=== PATIENT | male | born 1990 | race Caucasian/White ===

== ENCOUNTER 2017-03-27 17:22 | Emergency (ER) | payer OTHER ==
[2017-03-27] MEDS ORDERED: Sodium Chloride 0.9% 1,000 ML IV SCH (18:00)
[2017-03-27] MEDS ORDERED: Ketorolac 30 MG/ML SDV IVPUSH ONE (18:02)
[2017-03-27] MEDS ORDERED: Ondansetron 4 MG/2 ML SDV IVPUSH ONE (18:02)
--- NOTE | 2017-03-27 18:04 | EDM.PDOC ---
ED HPI GENERAL MEDICAL PROBLEM - General Chief Complaint: Abdominal Pain Stated Complaint: STOMACH PAIN Time Seen by Provider: 03/27/17 17:49 Source of Information: Reports: Patient, RN Notes Reviewed History Limitations: Reports: No Limitations - History of Present Illness INITIAL COMMENTS - FREE TEXT/NARRATIVE: 26-year-old gentleman presents emergency department today complaint of abdominal pain, he was initially evaluated in the clinic sent to the emergency department for further evaluation he states his abdominal pain started today and has progressively gotten worse probably in the left lower quadrant prior to this he did have some sinus issues mainly upper respiratory a symptomology that has improved somewhat he complains of a headache and nausea Headache Pain Score (Numeric/FACES): 9 - Related Data Allergies Allergy/AdvReac Type Severity Reaction Status Date / Time No Known Allergies Allergy Verified 03/27/17 17:44 Home Meds: Home Meds NK [No Known Home Meds] 07/10/16 [History] Past Medical History Musculoskeletal History: Reports: Fracture Psychiatric History: Reports: ADHD Social & Family History - Tobacco Use Smoking Status *Q: Unknown Ever Smoked Years of Tobacco use: 8 Packs/Tins Daily: 1 - Recreational Drug Use Recreational Drug Use: No ED ROS GENERAL - Review of Systems Review Of Systems: See Below Constitutional: Reports: Fever, Chills HEENT: Reports: No Symptoms Respiratory: Reports: No Symptoms Cardiovascular: Reports: No Symptoms GI/Abdominal: Reports: Abdominal Pain, Nausea. Denies: Flatus, Vomiting : Reports: No Symptoms Musculoskeletal: Reports: No Symptoms Skin: Reports: No Symptoms Neurological: Reports: No Symptoms Psychiatric: Reports: No Symptoms ED EXAM, GI/ABD - Physical Exam Exam: See Below Text/Narrative:: General: Male, not in any distress, alert and oriented x3 HEENT: head is atraumatic normocephalic, eyes pupils equal round reactive to light, sclera clear no conjunctivitis appreciated. Ears tympanic membranes clear and khan landmarks and light reflex are present bilaterally canals are clear. Nose no septal deviation, nares are clear, no blood present. Mouth mucosa is moist and pink no erythema or exudate noted in soft palate, tongue is midline uvula is midline, dentition is intact. Neck: Supple no thyromegaly no tracheal deviation. Nodes: Cervical nodes subclavicular nodes nontender no palpable lymphadenopathy noted. Lungs: clear to auscultation bilaterally with symmetrical respirations, no adventitious noise appreciated. CV: Regular rate and rhythm S1 and S2 appreciated no murmurs rubs or gallops noted. Abdomen: Soft, tender left lower quadrant, no palpable masses or organomegaly appreciated, no distention positive for guarding bowel sounds are present, . Neuro: Cranial nerves II through XII grossly intact Skin: Warm and dry, intact Extremities: No lower extremity edema appreciated, pedal pulse is +2. Course - Vital Signs Last Recorded V/S: Last Vital Signs Temp 101.7 F H 03/27/17 18:30 Pulse 91 03/27/17 21:32 Resp 18 03/27/17 21:32 BP 137/76 03/27/17 21:32 Pulse Ox 96 03/27/17 21:32 - Orders/Labs/Meds Orders: Active Orders 24 hr Category Date Time Status Vital Signs [RC] Q1H Care 03/27/17 17:56 Active Abdomen Pelvis w Cont [CT] Stat Exams 03/27/17 19:55 Taken CULTURE BLOOD [BC] Urgent Lab 03/27/17 18:10 Received CULTURE BLOOD [BC] Urgent Lab 03/27/17 18:22 Received Iopamidol [Isovue-300 (61%)] Med 03/27/17 20:15 Active 150 ml IV . DIRECTED Sodium Chloride 0.9% [Normal Saline] 1,000 ml Med 03/27/17 18:00 Active IV ASDIRECTED Sodium Chloride 0.9% [Normal Saline] 80 ml Med 03/27/17 20:15 Active IV ASDIRECTED Sodium Chloride 0.9% [Saline Flush] Med 03/27/17 20:01 Active 10 ml FLUSH ASDIRECTED PRN Blood Culture x2 Reflex Set [OM.PC] Urgent Oth 03/27/17 17:56 Ordered Medication Orders Sodium Chloride (Normal Saline) 1,000 mls @ 999 mls/hr IV ASDIRECTED KRISTAN Last Admin: 03/27/17 18:27 Dose: 999 mls/hr Sodium Chloride (Normal Saline) 80 mls @ 3 mls/sec IV ASDIRECTED KRISTAN Last Admin: 03/27/17 20:15 Dose: 3 mls/sec Iopamidol (Isovue-300 (61%)) 150 ml IV . DIRECTED KRISTAN Last Admin: 03/27/17 20:15 Dose: 150 ml Sodium Chloride (Saline Flush) 10 ml FLUSH ASDIRECTED PRN PRN Reason: Keep Vein Open Last Admin: 03/27/17 20:14 Dose: 10 ml Labs: Laboratory Tests 03/27/17 03/27/17 03/27/17 Range/Units 18:00 18:10 18:10 Lactic Acid 1.5 (0.4-2.0) mmol/L C-Reactive Protein 1.59 H (0.0-0.3) mg/dL Lipase (73-393) U/L Urine Color Yellow Urine Appearance Clear Urine pH 5.0 (4.5-8.0) Ur Specific [place] 1.015 (1.008-1.030) Urine Protein Negative (NEGATIVE) mg/dL Urine Glucose (UA) Normal (NEGATIVE) mg/dL Urine Ketones Negative (NEGATIVE) mg/dL Urine Occult Blood Negative (NEGATIVE) Urine Nitrite Negative (NEGAITVE) Urine Bilirubin Negative (NEGATIVE) Urine Urobilinogen Normal (NORMAL) mg/dL Ur Leukocyte Esterase Negative (NEGATIVE) Urine RBC 0-5 (0-5) Urine WBC 0-5 (0-5) Ur Epithelial Cells Rare Amorphous Sediment Not seen Urine Bacteria Few Urine Mucus Moderate 03/27/17 Range/Units 18:10 Lactic Acid (0.4-2.0) mmol/L C-Reactive Protein (0.0-0.3) mg/dL Lipase 67 L (73-393) U/L Urine Color Urine Appearance Urine pH (4.5-8.0) Ur Specific [place] (1.008-1.030) Urine Protein (NEGATIVE) mg/dL Urine Glucose (UA) (NEGATIVE) mg/dL Urine Ketones (NEGATIVE) mg/dL Urine Occult Blood (NEGATIVE) Urine Nitrite (NEGAITVE) Urine Bilirubin (NEGATIVE) Urine Urobilinogen (NORMAL) mg/dL Ur Leukocyte Esterase (NEGATIVE) Urine RBC (0-5) Urine WBC (0-5) Ur Epithelial Cells Amorphous Sediment Urine Bacteria Urine Mucus Meds: Medications Generic Name Dose Route Start Last Admin Trade Name Freq PRN Reason Stop Dose Admin Sodium Chloride 1,000 mls @ 999 mls/hr 03/27/17 18:00 03/27/17 18:27 Normal Saline IV 999 mls/hr ASDIRECTED KRISTAN Administration Sodium Chloride 80 mls @ 3 mls/sec 03/27/17 20:15 03/27/17 20:15 Normal Saline IV 3 mls/sec ASDIRECTED KRISTAN Administration Iopamidol 150 ml 03/27/17 20:15 03/27/17 20:15 Isovue-300 (61%) IV 150 ml . DIRECTED KRISTAN Administration Sodium Chloride 10 ml 03/27/17 20:01 03/27/17 20:14 Saline Flush FLUSH 10 ml ASDIRECTED PRN Administration Keep Vein Open Discontinued Medications Generic Name Dose Route Start Last Admin Trade Name Anamaria PRN Reason Stop Dose Admin Diphenhydramine HCl 25 mg 03/27/17 20:55 03/27/17 21:25 Benadryl IVPUSH 03/27/17 20:56 25 mg ONETIME ONE Administration Haloperidol Lactate 5 mg 03/27/17 20:55 03/27/17 21:27 Haldol IVPUSH 03/27/17 20:56 5 mg ONETIME ONE Administration Ketorolac Tromethamine 30 mg 03/27/17 18:02 03/27/17 18:27 Toradol IVPUSH 03/27/17 18:03 30 mg ONETIME ONE Administration Ondansetron HCl 4 mg 03/27/17 18:02 03/27/17 18:28 Zofran IVPUSH 03/27/17 18:03 4 mg ONETIME ONE Administration Departure - Departure Time of Disposition: 21:45 Disposition: Home, Self-Care 01 Condition: Good Clinical Impression: Abdominal pain Qualifiers: Abdominal location: left lower quadrant Qualified Code(s): R10.32 - Left lower quadrant pain - Discharge Information Referrals: PCP,None [Primary Care Provider] - Forms: ED Department Discharge Additional Instructions: Continue to use Tylenol and Motrin as needed for pain control, Please followup with your primary care provider in 3-5 days if not better, please call return to the emergency department with worsening of symptoms. - My Orders Last 24 Hours: My Active Orders 03/27/17 17:56 Vital Signs [RC] Q1H Blood Culture x2 Reflex Set [OM.PC] Urgent 03/27/17 18:00 Sodium Chloride 0.9% [Normal Saline] 1,000 ml IV ASDIRECTED 03/27/17 18:10 CULTURE BLOOD [BC] Urgent 03/27/17 18:22 CULTURE BLOOD [BC] Urgent 03/27/17 19:55 Abdomen Pelvis w Cont [CT] Stat 03/27/17 20:01 Sodium Chloride 0.9% [Saline Flush] 10 ml FLUSH ASDIRECTED PRN 03/27/17 20:15 Iopamidol [Isovue-300 (61%)] 150 ml IV . DIRECTED Sodium Chloride 0.9% [Normal Saline] 80 ml IV ASDIRECTED - Assessment/Plan Last 24 Hours: My Active Orders 03/27/17 17:56 Vital Signs [RC] Q1H Blood Culture x2 Reflex Set [OM.PC] Urgent 03/27/17 18:00 Sodium Chloride 0.9% [Normal Saline] 1,000 ml IV ASDIRECTED 03/27/17 18:10 CULTURE BLOOD [BC] Urgent 03/27/17 18:22 CULTURE BLOOD [BC] Urgent 03/27/17 19:55 Abdomen Pelvis w Cont [CT] Stat 03/27/17 20:01 Sodium Chloride 0.9% [Saline Flush] 10 ml FLUSH ASDIRECTED PRN 03/27/17 20:15 Iopamidol [Isovue-300 (61%)] 150 ml IV . DIRECTED Sodium Chloride 0.9% [Normal Saline] 80 ml IV ASDIRECTED Plan: Assessment Acuity = acute Site and laterality = abdominal pain palpated patient with known history of migraines Etiology = unclear etiology Manifestations = fever, headache Location of injury = Home Lab values = CBC CMP from clinic unremarkable except for elevated white count of 15,000, lactic acid normal at 1.5 CRP elevated 1.6 lipase normal at 67 CT scan shows no acute process in the abdomen Plan He had good relief of his headache with combination Toradol, Haldol and Benadryl nausea was controlled with Zofran I did discuss with him options including further evaluation which he declined plan is to continue outpatient treatment Tylenol Motrin follow-up with primary care in 3-5 days if not better Patient was in agreement with the plan all questions were answered, they were instructed to return to the emergency department or call for worsening symptoms. This note was dictated using [employer] voice recognition software please call with any questions.
[2017-03-27] MEDS ORDERED: Sodium Chloride 0.9% 10 ML Syringe FLUSH PRN (20:01)
[2017-03-27] MEDS ORDERED: Sodium Chloride 0.9% 80 ML IV SCH (20:15)
[2017-03-27] MEDS ORDERED: Iopamidol 612 MG/ML 150 ML Bottle IV SCH (20:15)
[2017-03-27] MEDS ORDERED: Haloperidol Lactate 5 MG/ML SDV IVPUSH ONE (20:55)
[2017-03-27] MEDS ORDERED: diphenhydrAMINE 50 MG/ML SDV IVPUSH ONE (20:55)
[2017-03-27 21:33] VITALS: BP 137/76
== END 2017-03-27 21:56 | disposition home or self-care (01) ==
LOC: JP.ED 17:22
DX: R10.32 Left lower quadrant pain (principal); G43.909 Migraine, unspecified, not intractable, without status migrainosus
CPT/HCPCS: 36415; 74177; 81001; 83605; 83690; 86140; 87040; 87077; 87186; 96361; 96374; 96375; 99284; J1200; J1630; J1885; J2405; J7030; J7040; J7050

== ENCOUNTER 2018-08-09 21:05 | Emergency (ER) | payer SELFPAY ==
[2018-08-09 21:29] VITALS: BP 127/78
--- NOTE | 2018-08-09 22:05 | EDM.PDOC ---
<Adriane Grant - Last Filed: 08/09/18 22:08> ED HPI GENERAL MEDICAL PROBLEM - General Chief Complaint: Back Pain or Injury Stated Complaint: RIGHT SIDE MID BACK/RIB PAIN Time Seen by Provider: 08/09/18 21:50 Source of Information: Reports: Patient History Limitations: Reports: No Limitations - History of Present Illness INITIAL COMMENTS - FREE TEXT/NARRATIVE: Manuel Giraldo is a 28 year old male who reports to the ED with concerns of back pain. He injured his back 2 days ago when he went to sit in a wooden chair and it had broke. He ended up landing on one of the wooden pieces, injuring his back. He states the pain is located on the right side of his upper back. He states movement does aggravate the pain. 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 He states having a history of back pain and scoliosis. He denied radiculopathy. He states he took cyclobenzaprine for attempted treatment with minimal relief. Further symptoms are denied at this time. Treatments OPTICAL EFFECTS LAYOUT PERSON: Reports: Other (see below) Other Treatments OPTICAL EFFECTS LAYOUT PERSON: none Upper back Pain Score (Numeric/FACES): 8 - Related Data Allergies Allergy/AdvReac Type Severity Reaction Status Date / Time No Known Allergies Allergy Verified 08/09/18 21:41 Home Meds: Home Meds NK [No Known Home Meds] 07/10/16 [History] Past Medical History - Past Health History Medical/Surgical History: Denies Medical/Surgical History HEENT History: Reports: Impaired Vision Musculoskeletal History: Reports: Fracture Psychiatric History: Reports: ADHD - Infectious Disease History Infectious Disease History: Reports: Chicken Pox Social & Family History - Tobacco Use Smoking Status *Q: Current Every Day Smoker Years of Tobacco use: 10 Packs/Tins Daily: 1 - Caffeine Use Caffeine Use: Reports: Energy Drinks, Soda - Recreational Drug Use Recreational Drug Use: No ED ROS GENERAL - Review of Systems Review Of Systems: ROS reveals no pertinent complaints other than HPI. ED EXAM, UPPER BACK/NECK PAIN - Physical Exam Exam: See Below Exam Limited By: No Limitations General Appearance: Alert, WD/WN, No Apparent Distress Ears Exam: Normal External Exam Nose Exam: Normal Inspection Throat/Mouth Exam: Normal Inspection, Normal Lips Head Exam: Atraumatic, Normocephalic Neck Exam: Non-Tender, Full Range of Motion, Other (Tenderness upon palpation of posterior neck) Cardiovascular/Respiratory: Regular Rate, Rhythm, Normal Breath Sounds, No Respiratory Distress, Other (Lungs clear to ascultation bilaterally) Back Exam: Normal Inspection, Full Range of Motion, Other (Tenderness upon palaption of right side over rhomboid muscles ). No: Paraspinal Tenderness Neurologic: No Motor/Sensory Deficits, Alert Psychiatric: Normal Affect Skin Exam: Normal Color Course - Vital Signs Last Recorded V/S: Last Vital Signs Temp 99.2 F 08/09/18 21:41 Pulse 97 08/09/18 21:41 Resp 16 08/09/18 21:41 BP 127/78 08/09/18 21:41 Pulse Ox 94 L 08/09/18 21:41 Departure - Departure Disposition: Home, Self-Care 01 Clinical Impression: Contusion of back Qualifiers: Encounter type: initial encounter Laterality: right Qualified Code(s): S20.221A - Contusion of right back wall of thorax, initial encounter - Discharge Information Instructions: Contusion, [id number] Referrals: PCP,None [Primary Care Provider] - Forms: ED Department Discharge Care Plan Goals: Continue Flexeril as needed, a regular dose of ibuprofen or naproxen will be helpful. Increase activity as tolerated and recheck next week if you do not feel you are improving satisfactorily. <Elías Campo - Last Filed: 08/10/18 05:29> Course - Re-Assessments/Exams Free Text/Narrative Re-Assessment/Exam: 08/09/18 22:28 Two-view chest x-ray obtained, completely normal. Discuss musculoskeletal injury and pain prevention, activity expectations etc. Continue with the Flexeril, and a regular dose of anti-inflammatory would be beneficial. Recheck next week if not improving satisfactorily. Departure - Departure Time of Disposition: 22:32 Condition: Good
--- NOTE | 2018-08-09 22:28 | CRLCR ---
INDICATION: Shortness of breath TECHNIQUE: Chest radiograph 2 views COMPARISON: 10/18/2007 FINDINGS: Mediastinum: The mediastinum is normal in appearance. The heart silhouette is normal in size and morphology. Lung: Both lungs are unremarkable in appearance. No sign of pleural effusion seen. No pneumothorax is identified. Musculoskeletal: Unremarkable for age. IMPRESSION: 1. No acute cardiopulmonary disease is seen. Dictated by: Jermaine Bauman MD @ 08/09/2018 22:27:16 (Electronically Signed)
== END 2018-08-09 22:37 | disposition home or self-care (01) ==
LOC: JP.ED 21:05
DX: S20.221A Contusion of right back wall of thorax, initial encounter (principal); F17.210 Nicotine dependence, cigarettes, uncomplicated; W26.8XXA Contact with other sharp object(s), not elsewhere classified, initial encounter
CPT/HCPCS: 71046; 99283-25

== ENCOUNTER 2022-03-05 05:36 | Emergency (ER) | payer BC ==
[2022-03-05 05:50] VITALS: BP 132/66; PULSE 88
== END 2022-03-05 07:06 | disposition home or self-care (01) ==
LOC: JP.ED 05:36
DX: J06.9 Acute upper respiratory infection, unspecified (principal); F17.210 Nicotine dependence, cigarettes, uncomplicated; Z86.16 Personal history of COVID-19; Z20.822 Contact with and (suspected) exposure to COVID-19
CPT/HCPCS: 36415; 71046; 71046-26; 80048; 85025; 86140; 99283; 99284; U0002

== ENCOUNTER 2023-09-04 21:01 | Emergency (ER) | payer BC ==
[2023-09-04 22:14] VITALS: BP 109/71; PULSE 77
== END 2023-09-05 00:11 | disposition home or self-care (01) ==
LOC: JP.ED 21:01
DX: H66.92 Otitis media, unspecified, left ear (principal); F17.210 Nicotine dependence, cigarettes, uncomplicated; H61.22 Impacted cerumen, left ear
CPT/HCPCS: 99283; 99283-25

== ENCOUNTER 2024-05-24 22:16 | Emergency (ER) | payer BC ==
[2024-05-24 22:32] VITALS: BP 123/78; PULSE 95
[2024-05-24 23:31] LABS: APPEARANCE,URINE CLEAR (CLEAR); BILIRUBIN,URINE NEGATIVE (NEGATIVE); COLOR,URINE YELLOW (YELLOW); GLUCOSE,URINE NEGATIVE (NEGATIVE); KETONES,URINE NEGATIVE (NEGATIVE); LEUKOCYTE ESTERASE,URINE NEGATIVE (NEGATIVE); NITRITE,URINE NEGATIVE (NEGATIVE); OCCULT BLOOD,URINE NEGATIVE (NEGATIVE); PH,URINE 5.5 (5.0-8.0); PROTEIN,URINE NEGATIVE (NEGATIVE); UROBILINOGEN,URINE 0.2 EU/dL (0.2-1.0)
[2024-05-24] MEDS: tiZANidine 2 MG Tab PO ONE (23:36)
[2024-05-24 23:46] LABS: AMORPHOUS SEDIMENT,URINE NOT SEEN; BACTERIA,URINE FEW; EPITHELIAL CELLS,URINE FEW; MUCUS,URINE NOT SEEN; RBC,URINE 0-5 (0-5); WBC,URINE 0-5 (0-5)
== END 2024-05-24 23:55 | disposition home or self-care (01) ==
LOC: JP.ED 22:16
DX: M54.42 Lumbago with sciatica, left side (principal); F17.210 Nicotine dependence, cigarettes, uncomplicated; Z86.16 Personal history of COVID-19; Z79.899 Other long term (current) drug therapy
CPT/HCPCS: 81001; 99283; A9270